=== PATIENT | male | born 1970 | race Caucasian/White ===

== ENCOUNTER 2025-06-13 22:24 | Emergency (ER) | payer OTHER ==
[~2025-06-13] VITALS: Ht 175.3 cm; Wt 93.0 kg
[2025-06-13 23:01] VITALS: BP 120/83; TEMP 98.1; O2SAT 99
[2025-06-13] MEDS ORDERED: IBUP-1957 PO (23:16)
[2025-06-13] MEDS ORDERED: KETOROLAC TROMETHAMINE 15 MG/ML VIAL ONE (23:23)
[2025-06-13] MEDS: KETOROLAC TROMETHAMINE 15 MG/ML VIAL IM ONE (23:23)
== END 2025-06-13 23:45 | disposition home or self-care (01) ==
LOC: ER 22:28
DX: M72.2 Plantar fascial fibromatosis (principal); I11.9 Hypertensive heart disease without heart failure; E78.5 Hyperlipidemia, unspecified
CPT/HCPCS: 99283; 96372; J1885